=== PATIENT | female | born 1980 | race American Indian/Alaskan Native ===

== ENCOUNTER 2018-04-30 08:10 | Day surgery (SDC) | payer BC ==
[2018-04-30 08:25] VITALS: BMI 26.6
[2018-04-30 08:54] LABS: BASO % 1.1 % (0.0-2.0); EOS # 0.1 K/uL (0.0-0.7); EOS % 1.7 % (0.0-4.0); HEMOGLOBIN 11.9 g/dL (11.0-16.0); LYMPH % 26.1 % (20.0-40.0); MEAN CELL VOLUME 87.9 fL (81.0-99.0); MEAN CORPUSCULAR HEMOGLOBIN 29.1 pg (27.0-31.0); MEAN CORPUSCULAR HGB CONC 33.1 g/dL (33.0-37.0); MEAN PLATELET VOLUME 8.1 fL (7.2-11.7); MONO # 0.5 K/uL (0.0-0.8); MONO % 12.8 % (0.0-10.0); NEUT # 2.3 K/uL (1.8-7.0); NEUT % 58.3 % (50.0-75.0); NRBC % 0.1 % (0.0-2.0); RBC 4.09 Mil/uL (3.80-5.20); RED CELL DISTRIBUTION WIDTH 13.8 % (11.5-14.5); WHITE BLOOD COUNT 3.9 K/uL (4.8-10.8)
[2018-04-30 09:16] LABS: BLOOD UREA NITROGEN 12 mg/dL (7-17); CALCIUM 8.9 mg/dl (8.6-10.4); GFR NON-AFRICAN AMERICAN > 60
[2018-04-30] MEDS ORDERED: Propofol 10 mg/ml Inj (20 ML) ONE (11:12)
[2018-04-30] MEDS ORDERED: Midazolam 2 MG/2 ML VIAL ONE (11:12)
[2018-04-30] MEDS ORDERED: Lidocaine Hydrochloride 5 ML INJ ONE (11:23)
[2018-04-30] MEDS ORDERED: Lactated Ringer's 1,000 ML IV SCH (12:00)
[2018-04-30] MEDS: HYDROmorphone 0.5 mg/0.5 ml ISec IVP PRN (12:23)
[2018-04-30 13:06] VITALS: TEMP 98
[2018-04-30 13:36] VITALS: BP 112/70; PULSE 88; RESP 18; O2SAT 100
--- NOTE | 2018-04-30 23:38 | OP ---
PROCEDURE DATE: 04/30/2018 PREOPERATIVE DIAGNOSES: Abnormal uterine bleeding, endometrial polyps. PROCEDURE PERFORMED: Hysteroscopic myomectomy, dilation and curettage. SURGEON: Paulina Plaza MD FRAME ALIGNER: None. TYPE OF ANESTHESIA: General LMA. OPERATIVE FINDINGS: Eight-week size uterus, cervical stenosis, bilateral ostia visualized, submucosal myoma noted anteriorly, carefully resected. ESTIMATED BLOOD LOSS: 5 mL. COMPLICATIONS: None. SPECIMEN SENT TO PATHOLOGY: Endocervical curettings, endometrial curettings, submucosal myoma. DESCRIPTION OF PROCEDURE: The patient was taken to the operating room, where she was given general anesthesia. Once it was found to be adequate, she was placed on the operating table in dorsal supine position with legs supported using stirrups. The patient was then prepped and draped in the usual sterile fashion. A time-out confirmed correct patient and correct procedure. Bimanual exam was performed with the above-mentioned findings. A Alba retractor was placed in the anterior and posterior fornix of the vagina. The cervix was adequately visualized. A single-tooth tenaculum was placed in the anterior lip of the cervix. Endocervical curettings were obtained with a Kevorkian curette and sent to pathology on [place]elf[place]. The uterus was then sounded to 8 cm. Following this, the cervix was sequentially dilated to allow for introduction of the hysteroscope under direct visualization using normal saline as the distention media. Bilateral ostia were visualized. Submucosal myoma was noted anteriorly. Following this, MyoSure device was then inserted under direct visualization. The mass was then carefully resected. There was good hemostasis noted. The MyoSure device was removed. Gentle curettage was done. Specimen was labeled and sent to Pathology as endometrial curettings. All instruments were removed. There was good hemostasis at the tenaculum puncture site. At the end of the procedure, all needle, sponge, and instrument counts were noted and correct x2. The patient tolerated the procedure well and was transferred to the recovery room in stable condition. Paulina Plaza MD
== END 2018-04-30 14:26 | disposition home or self-care (01) ==
LOC: C.SDS 08:10
PROVIDERS: ATTEND Obstetrics & Gynecology
DX: N84.0 Polyp of corpus uteri (principal); N93.9 Abnormal uterine and vaginal bleeding, unspecified